=== PATIENT | female | born 1955 | race Caucasian/White ===

== ENCOUNTER 2017-12-17 01:26 | Inpatient (IN) | payer OTHER ==
[~2017-12-17] VITALS: Ht 157.5 cm; Wt 87.7 kg
[~2017-12-17 01:26] MED LIST: HYDROCHLOROTHIA25 M1 PO; LEVOTHYROXINE125 MCG PO; LISINOPRIL20 M1 PO
--- NOTE | 2017-12-17 09:59 | Operative Report ---
Operative/Inv Procedure Report Surgery Date: 12/17/17 Name of Procedure: Left total knee arthroplasty Pre-Operative Diagnosis: Left knee degenerative joint disease Post-Operative Diagnosis: Left knee degenerative joint disease Estimated Blood Loss: 50ml to 100ml Surgeon/Church Secretary: Alexander AGUILAR,KALEN Arreola Anesthesia: block, spinal Implants: [employer] size 5N, left cruciate retaining Legion narrow Oxinium femoral component. Maryann II left nonporous tibial baseplate size 4. Maryann II biconvex patellar component size 23 mm. Size 34 11 mm Legion cruciate retaining XLP E high flexion articular insert Complications: None Condition: Stable to PACU Operative Indication: This is a 62-year-old female long-standing left knee pain and has failed conservative care. Risks and benefits of the procedure were discussed with the patient at length. Risks include but are not limited to nerve damage, muscle damage, infection, blood loss, blood clots, pulmonary embolus, and even . The patient agreed to the above risks and elected to proceed with surgery. Operative/Procedure Note Note: The patient was taken to the operating room. Anesthesia was induced after the timeout was performed. The lower extremity was prepped and draped in the normal sterile fashion. IV antibiotics were given prior to incision. The site marking was visualized prior to incision. After the leg was prepped and draped, an esmarch was used to exsanguinate the extremity. The tourniquet was inflated. A midline incision was made proximal to the patella extending down to the tibial tubercle. A medial parapatellar approach was then made. The skin was retracted and the extensor mechanism was incised. The knee was taken down into full extension. The patellar fat pad was resected. The medial retinaculum was then taken down. The synovium over the distal femur was then resected. The patella was everted and the knee was flexed up. The lateral meniscus was then excised. The ACL was removed. A drill was then used to open up the distal femur. The intramedullary guide was then applied. A 6 distal femoral cut was then made. The femur was then sized. The chamfer guide was then applied. The anterior, posterior, and chamfer cuts were then made while protecting the patellar tendon with a Hohmann retractor and the medial collateral ligament with a Z retractor. A pickle fork was then used to deliver the tibia. The extramedullary tibial guide was then applied. The proximal tibial cut was made. The medial and lateral meniscus were then excised. The osteophytes were removed with a Rongeur. The tibia was sized and the trial base plate was then pinned in place. A trial femoral component was placed and a trial polyethylene insert was then applied as well. The knee was taken through a range of motion and was noted to be quite stable. The patella was then everted, sized, and then reamed. A trial patellar component was placed and the knee was taken through range of motion. The patella was noted to be quite stable. All trial instruments were then removed. The knee was copiously irrigated. Retractors were placed in the final components were then cemented in. A trial polyethylene insert was then placed. After the cement hardened, the excess cement was removed. The trial poly-insert was then removed. The knee was copiously irrigated. The final poly insert was inserted. The tourniquet was let down. Any bleeding vessels were identified and cauterized. A 1/8 inch Hemovac drain was then placed. The extensor mechanism was closed with #1 Vicryl suture in a simple interrupted fashion. The skin was closed with 2-0 Vicryl suture. A running subcuticular 4-0 Monocryl stitch was then placed. Dermabond was applied. A dry sterile dressing was placed and patient was transferred to PACU in stable condition.
[2017-12-17 12:30] VITALS: BP 108/70
[2017-12-17 14:52] VITALS: BP 10/69; BP 100/69
[2017-12-17 16:34] VITALS: BP 110/69
--- NOTE | 2017-12-17 17:11 | PN- Orthopedic ---
Subjective Subjective: Post op check Awake, alert post op No complaints at this time Denies nausea, tolerating diet Pain is well controlled at this time Has not ambulated with PT Objective Vital Signs and I&Os Vital Signs Date Time Temp Pulse Resp B/P B/P Pulse O2 O2 Flow FiO2 Mean Ox Delivery Rate 12/17 1634 98.3 92 18 110/69 95 12/17 1452 98.1 90 20 100/69 97 12/17 1230 98.0 70 16 108/70 97 Room Air Intake & Output 12/17 1600 12/17 0812/17 0000 12/16 1600 12/16 0000 Intake Total 390 Output Total 650 Balance -260 Intake, IV 150 Intake, Oral 240 Output, Urine 650 Patient 175 lb Weight Weight Reported by Patient Measurement Method Physical Exam: vss, afebrile General: alert and oriented times three Chest: clear anteriorly bilaterally, RRR Abd: soft, good bs Ext: warm, no edema, normosensate, good 5/5 PAULY, no calf tenderness Wd: dressing clean and dry, ice pack in place On Q FEDE <10cc bloody drainage Assessment/Plan Assessment/Plan 62yo female s/p L TKR pain management lovenox for dvt ppx/alps PT wbat On Q per anesthesia soria overnight - dc in am fede - monitor output Core Measures Venous Thromboembolism VTE Risk Factors Surgery No Mechanical VTE Prophylaxis d/t N/A MechProphylax Ordered No VTE Pharm Prophylaxis d/t NA PharmProphylax ordered
[2017-12-17 18:30] VITALS: BP 102/68
[2017-12-17 21:33] VITALS: BP 95/64
[2017-12-18 00:47] VITALS: BP 100/60
[2017-12-18 06:50] VITALS: BP 98/70
--- NOTE | 2017-12-18 07:42 | PN- Orthopedic ---
Surgical Brief Attending Note Brief Attending Note: Resting comfortably AVSS LLE - +EHL/FHL +sens m/l/1st dws dressing c/d/i A/P - POD 1 s/p L TKA WBAT PT Lovenox D/C drain
[2017-12-18 09:04] LABS: ABSOLUTE BASOPHIL COUNT 0 /CUMM (0.0-0.2); ABSOLUTE EOSINOPHIL COUNT 0.1 /CUMM (0.0-0.7); ABSOLUTE GRANULOCYTE CT 5.7 /CUMM (1.4-6.5); ABSOLUTE MONOCYTE COUNT 0.7 /CUMM (0.10-0.60); BASOPHIL % 0.4 % (0.0-2.0); EOSINOPHIL % 1.2 % (0-5); HEMATOCRIT 29.5 % (37-47); MEAN CORPUSCULAR HGB 30.9 PG (27.0-31.0); MEAN CORPUSCULAR VOLUME 90.9 FL (81.0-99.0); MEAN PLATELET VOLUME 9.5 FL (7.4-10.4); PLATELET COUNT 219 /CUMM (130-400); RBC DISTRIBUTION WIDTH 13.5 % (11.5-14.5); RED BLOOD CELL CT 3.24 /CUMM (4.20-5.40); WHITE BLOOD CELL COUNT 8.4 /CUMM (4.8-10.8)
[2017-12-18 10:14] VITALS: BP 110/70
[2017-12-18 15:34] VITALS: BP 100/60
[2017-12-18 18:32] VITALS: BP 102/60
[2017-12-18 21:58] VITALS: BP 112/65
[2017-12-19 06:20] VITALS: BP 124/80
--- NOTE | 2017-12-19 12:56 | PN- Orthopedic ---
Subjective Subjective: Pt is doing very well. Pain is reasonably controlled, although she is noticing it a bit more now that the OnQ pain pump has been removed. She is otherwise tolerating po, voiding, and had a BM. No other major complaints. Objective Vital Signs and I&Os Vital Signs Date Time Temp Pulse Resp B/P B/P Pulse O2 O2 Flow FiO2 Mean Ox Delivery Rate 12/19 0620 98.8 77 18 124/80 96 Room Air 12/18 2158 97.9 85 20 112/65 95 Room Air 12/18 1832 99.0 81 19 102/60 97 Room Air 12/18 1534 97.8 74 18 100/60 95 Intake & Output 12/19 1600 12/19 0800 12/19 0000 12/18 1600 12/18 0800 12/18 0000 Intake Total 200 771 284 4536 600 Output Total 500 1100 067 747 5520 610 Balance -500 -900 -300 215 30 -10 Intake, IV 600 600 Intake, Oral 200 300 840 480 Number 1 Bowel Movements Output, 50 10 Drainage Output, Urine 500 1100 762 320 1561 600 Patient 198 lb 191 lb Weight Weight Bed scale Measurement Method Physical Exam: Gen: Pt is awake and alert. NAD. Cardiac: regular Pulm: CTA bilaterally. Ext: LLE dressing was removed. Incision is clean and intact with surgical glue in place. Moderate surrounding knee swelling is noted, within expected limits. Strength of DF and PF on the left are 5/5. No calf tenderness noted bilaterally. Assessment/Plan Assessment/Plan Pt is a 62 yo F who is now POD #2 s/p L TKR. She remains stable from a surgical standpoint. Plan: -Continue mobilization with PT, weight bear as tolerated. -Dressing was changed today. Continue twice daily dry dressing changes. -Pain control with percocet as needed. -Lovenox for DVT ppx. -Continue bowel regimen despite BM. -Plan for dc home tomorrow with nursing and PT services. She can shower with shower shield tomorrow prior to discharge if desired. Core Measures Venous Thromboembolism VTE Risk Factors Surgery No Mechanical VTE Prophylaxis d/t N/A MechProphylax Ordered No VTE Pharm Prophylaxis d/t NA PharmProphylax ordered
[2017-12-19] MEDS ORDERED: LOVENOX40 MG/0.1 SC (13:04)
[2017-12-19] MEDS ORDERED: MIRALAX119 GM PO (13:04)
[2017-12-19] MEDS ORDERED: PERCOCET 5-3251 EACH PO (13:04)
[2017-12-19] MEDS ORDERED: DOCUSATE SODIU100 M3 PO (13:04)
--- NOTE | 2017-12-19 13:06 | Patient Discharge Instructions ---
Discharge Instructions General Discharge Information You were seen/treated for: LEFT KNEE DJD You had these procedures: LEFT TOTAL KNEE REPLACEMENT Watch for these problems: FEVER >101, REDNESS, DRAINAGE FROM THE INCISION SITE, CHEST PAIN, DIFFICULTY BREATHING Do not soak the wound: Yes No bath, but you may shower: Yes Other wound care: DRY DRESSING CHANGE ONCE DAILY. Diet Continue normal diet: Yes Activity Full Activity/No Limits: No Activity Self Limited: Yes Pounds, do NOT lift more than: 5 Activity Limited to: Weight bear as tolerated Other activity limits: NO STRENUOUS ACTIVITY OR HEAVY LIFTING, PUSHING OR PULLING. NO DRIVING WHILE USING NARCOTICS. Acute Coronary Syndrome Inclusion Criteria At DC or during hospital stay patient has or had the following: ACS DIAGNOSIS No Discharge Core Measures Meds if any: Prescribed or Continued at Discharge Meds if any: NOT Prescribed or Continued at Discharge Congestive Heart Failure Inclusion Criteria At DC or during hospital stay patient has or had the following: CHF DIAGNOSIS No Discharge Core Measures Meds if any: Prescribed or Continued at Discharge Meds if any: NOT Prescribed or Continued at Discharge Cerebrovascular accident Inclusion Criteria At DC or during hospital stay patient has or had the following: CVA/TIA Diagnosis No Discharge Core Measures Meds if any: Prescribed or Continued at Discharge Meds if any: NOT Prescribed or Continued at Discharge Venous thromboembolism Inclusion Criteria VTE Diagnosis No VTE Type NONE VTE Confirmed by (Test) NONE Discharge Core Measures - Per Current guidelines, there needs to be overlap - treatment for the first 5 days of Warfarin therapy. - If discharged on Warfarin prior to 5 days of - overlap therapy, the patient will need to be - assessed for post discharge needs including - *Post discharge parental anticoagulation - *Warfarin and/or parental anticoagulation education - *Follow up date to check INR post discharge At least 5 days overlap therapy as Inpatient No Meds if any: Prescribed or Continued at Discharge Note: Overlap Therapy is Warfarin and Anticoagulant Meds if any: NOT Prescribed or Continued at Discharge
[2017-12-19 15:06] VITALS: BP 116/80
[2017-12-19 22:16] VITALS: BP 124/80
[2017-12-20 06:20] VITALS: BP 114/74
--- NOTE | 2017-12-20 08:25 | PN- Orthopedic ---
Subjective Subjective: feeling well, some pain at knee, oob with pt yesterday, looking forward to going home today Objective Vital Signs and I&Os Vital Signs Date Time Temp Pulse Resp B/P B/P Pulse O2 O2 Flow FiO2 Mean Ox Delivery Rate 12/20 0620 97.9 79 18 114/74 96 Room Air 12/19 2216 98.9 85 20 124/80 95 Room Air 12/19 1506 98.0 84 18 116/80 96 Room Air Intake & Output 12/20 1600 12/20 0812/20 0000 12/19 1600 12/19 0800 12/19 0000 Intake Total 410 316 4480 200 300 Output Total 500 1100 600 Balance 250 250 500 -900 -300 Intake, IV 10 10 Intake, Oral 426 866 5511 200 300 Number 1 Bowel Movements Output, Urine 500 1100 600 Patient 193 lb 198 lb Weight Weight Bed scale Bed scale Measurement Method Physical Exam: GEN: NAD CARD: S1S2 RRR PULM: CTAB ABD: soft, nt EXT: calves soft nt, ALPS on bl, L knee incision CDI, ttp at incision, no erythema, no drainage. palp dp, +dorsi/plantarflexion, gross sensation intact bl. Current Medications: Current Medications Sig/Juanjose Start time Last Medication Dose Route Stop Time Status Admin Acetaminophen 650 MG Q4P PRN 12/17 1230 AC PO Docusate Sodium 100 MG DAILY NEEDED PRN 12/17 1230 AC PO Enoxaparin Sodium 40 MG DAILY 12/18 1000 AC 12/19 SC 1045 Hydrochlorothiazide 25 MG DAILY 12/18 1000 AC 12/19 PO 1048 Ketorolac 30 MG Q8 12/17 1400 DC 12/19 Tromethamine IV 12/20 0601 1420 Levothyroxine Sodium 0.125 MG DAILY AC 12/18 0700 AC 12/20 PO 0558 Lisinopril 20 MG DAILY 12/18 1000 AC 12/19 PO 1048 Morphine Sulfate 4 MG Q2P PRN 12/17 1230 AC IV Oxycodone/ 1 TAB Q4P PRN 12/17 1230 AC 12/20 Acetaminophen PO 0559 Oxycodone/ 2 TAB Q4P PRN 12/17 1230 AC 12/19 Acetaminophen PO 2319 Polyethylene Glycol 17 GM DAILY 12/18 1000 AC 12/19 PO 1049 Senna/Docusate Sodium 2 TAB DAILY 12/18 1000 AC 12/19 PO 1049 Assessment/Plan Assessment/Plan A- POD3 sp L TKR, stable, with appropriate postop pain P- wbat, pt, oob lovenox 40 qd, alps prn po pain meds home meds diet as tolerated dc planning *pt has already filled rx for percocet and lovenox will dw attending Core Measures Venous Thromboembolism VTE Risk Factors Surgery No Mechanical VTE Prophylaxis d/t N/A MechProphylax Ordered No VTE Pharm Prophylaxis d/t NA PharmProphylax ordered
== END 2017-12-20 11:20 | disposition home health service (06) | DRG 470 ==
LOC: SDA 01:26 → ENRESERV 10:52 → ENTRNSPT 12:02 → EDTRNSPT 12:13 → EDTRNSPTSTS 12:13 → 2NA 12:23 → CMPTRNSPT 12:32 → ENPENDDIS 12-20 08:25 → ENTRNSPT 12-20 10:51 → CMPTRNSPT 12-20 11:09 → 2NA 12-20 11:18
PROVIDERS: Physician Assistant Surgical
PROC: 0SRD0J9 Replacement of Left Knee Joint with Synthetic Substitute, Cemented, Open Approach (ICD-10-PCS; principal; 2017-12-17)
DX: M17.12 Unilateral primary osteoarthritis, left knee (principal); E03.9 Hypothyroidism, unspecified; E78.5 Hyperlipidemia, unspecified; I10 Essential (primary) hypertension
CPT/HCPCS: 2NAP; 36415; 36592; 82436; 87086; 97110-GO; 97116-GO; 97161-GP; 97530-GO; C1713; J0690; J1650; J1885; J2795